=== PATIENT | female | born 1960 | race Caucasian/White ===

== ENCOUNTER 2019-05-04 16:50 | Emergency (ER) | payer OTHER, SELFPAY ==
[2019-05-04 17:29] VITALS: BP 141/85; PULSE 75; RESP 16; TEMP 36.6; O2SAT 97; BMI 29.7
--- NOTE | 2019-05-04 17:31 | DI.RAD.S_ITS ---
PROCEDURE: XR KNEE LT 3V INDICATIONS: fell onto L knee and heard pop TECHNIQUE: 3 views of the knee were acquired. COMPARISON: None. FINDINGS: Bones: No fractures or dislocations. No suspicious bony lesions. Soft tissues: No joint effusion. No suspicious soft tissue calcifications. IMPRESSION: No acute fracture. No osseous lesion. If clinical suspicion and/or symptoms persist, further assessment with repeat plainfilms, or advanced imaging (e.g., CT, MRI, or bone scan) may be helpful for further assessment. Dictated by: Sheila Washburn M.D. on 05/04/2019 at 18:17 Approved by: Sheila Washburn M.D. on 05/04/2019 at 18:17
--- NOTE | 2019-05-04 18:38 | ED.LOWEXIN ---
HPI - Extremity Injury (Lower) <BYRON Moy - Last Filed: 05/04/19 22:51> General Chief Complaint: Extremity Injury, Lower Stated Complaint: fall, left knee popped Time Seen by Provider: 05/04/19 17:34 Source: patient Mode of arrival: Wheelchair Limitations: no limitations History of Present Illness HPI Narrative: This is a pleasant 58 year old female, nonsmoker, who presents with her children to ED with chief complaint of left knee pain. She reports she had a mechanical fall after her shoe got caught on something. She is not able to recall how she injured and whether she twisted the affected knee. However, she felt something pop in posterior knee, patient feels her knee feels unstable with bearing weight. She reports mild numbness to down her lower leg. Patient reports she has been having knee problem with popping forward and shifting freely in the past on the affected site. Patient reports she can move her toes and has sensation on her foot. Related Data Home Medications Medication Instructions Recorded Confirmed albuterol sulfate INHALATION 05/03/19 05/03/19 amoxicillin-pot clavulanate PO 05/03/19 05/03/19 heart med for tachycardia PO 05/03/19 05/03/19 levothyroxine PO 05/03/19 05/03/19 Previous Rx's Medication Instructions Recorded prednisone 20 mg tablet 20 mg PO DAILY 5 Days #5 tab 05/03/19 Allergies Allergy/AdvReac Type Severity Reaction Status Date / Time No Known Drug Allergies Allergy Unverified 05/03/19 14:03 Review of Systems <BYRON Moy - Last Filed: 05/04/19 22:51> Review of Systems ROS Unobtainable: All systems reviewed & are unremarkable except as noted in HPI and below PFSH <BYRON Moy - Last Filed: 05/04/19 22:51> Medical History (Updated 05/04/19 @ 22:31 by BYRON Moy) Hyperthyroidism (Acute) Reactive airway disease (Acute) SVT (supraventricular tachycardia) (Acute) Social History Smoking Status: Never smoker Social History Smoking Status: Never smoker Exam <BYRON Moy - Last Filed: 05/04/19 22:51> Narrative Exam Narrative: General appearance: well developed, well nourished, in no acute distress. Head: normocephalic, atraumatic, no scalp lesions, non-tender. Eye: pupil equal, round. EOMI. Nose: nares patent. Oral: mucosa moist. Neck/Thyroid: neck supple, full range of motion, no visible masses. Skin: no suspicious rashes, lesions over visible areas. Warm and dry. Heart: no clubbing, no cyanosis, no edema. Lungs: Breathing even and unlabored. No stridor. No accessory muscles used. Chest: normal shape and expansion. Abdomen: non-obese, non-distended. Neurologic: alert and oriented. Cognitive exam, [employer]LE [employer] and PNS grossly intact on informal exam. Psych: good eye contact, normal affect. Initial Vital Signs Initial Vital Signs: Vital Signs Temperature 98 F 05/04/19 17:29 Pulse Rate 75 05/04/19 17:29 Respiratory Rate 16 05/04/19 17:29 Blood Pressure 141/85 H 05/04/19 17:29 Pulse Oximetry 97 05/04/19 17:29 Extrem Right lower extremity: normal to inspection and full ROM Left lower extremity: hip/thigh Details: normal to inspection and normal ROM, knee Details: normal to inspection, tenderness (Posterior knee), normal ROM and knee ligament exam normal Details: anterior drawer test normal, posterior drawer test normal, valgus stress test normal and varus stress test normal; no swelling, no deformity and no unusual warmth, ankle Details: normal to inspection and foot Details: toes with normal ROM and vascular exam Details: dorsalis pedis pulse present and normal capillary refill; not cool and no cyanosis <Ophelia Simon DO - Last Filed: 05/05/19 07:58> Initial Vital Signs Initial Vital Signs: Vital Signs Temperature 98 F 05/04/19 17:29 Pulse Rate 75 05/04/19 17:29 Respiratory Rate 16 05/04/19 17:29 Blood Pressure 141/85 H 05/04/19 17:29 Pulse Oximetry 97 05/04/19 17:29 Procedures <BYRON Moy - Last Filed: 05/04/19 22:51> Orthopedic Splinting/Casting Injury #1: Side: left Lower Extremity Injury Location: knee Lower Extremity Immobilizer: knee immobilizer Other Orthopedic Equipment: crutches Post splinting neuro exam: intact Post splinting vascular exam: intact Placed by: Nursing Course <BYRON Moy - Last Filed: 05/04/19 22:51> Orders Ordered: ED Orders 05/04/19 17:31 XR knee LT 3V Stat Vital Signs Vital signs: Vital Signs - 8 hr 05/04/19 17:29 05/04/19 18:55 Temperature 98 F Pulse Rate 75 112 H Respiratory Rate 16 14 Blood Pressure 141/85 H Blood Pressure [Right Arm] 147/94 H Pulse Oximetry 97 96 <Ophelia Simon DO - Last Filed: 05/05/19 07:58> Orders Ordered: ED Orders 05/04/19 17:31 XR knee LT 3V Stat Vital Signs Vital signs: Vital Signs - 8 hr 05/04/19 17:29 05/04/19 18:55 Temperature 98 F Pulse Rate 75 112 H Respiratory Rate 16 14 Blood Pressure 141/85 H Blood Pressure [Right Arm] 147/94 H Pulse Oximetry 97 96 MDM - Extremity Injury (Lower) <BYRON Moy - Last Filed: 05/04/19 22:51> Differential Diagnosis Differential diagnosis: Likely other (Knee fracture, knee dislocation, knee ligament injuries) Medical Records Attestation: I reviewed the patient's medical records. Imaging Data XR-knee LT: Radiologist's impression: [address] [address] XRay Report Signed Patient: Brooke Mace LMR#: [id number] : 2Acct:[id number] Age/Sex: 58 / FDate of Service: 05/04/19 Loc: ED Accession Number: [id number] Procedure: XR knee LT 3V Ordering Provider: Ophelia Simon D.O. PROCEDURE: XR KNEE LT 3V INDICATIONS: fell onto L knee and heard pop TECHNIQUE: 3 views of the knee were acquired. COMPARISON: None. FINDINGS: Bones: No fractures or dislocations. No suspicious bony lesions. Soft tissues: No joint effusion. No suspicious soft tissue calcifications. IMPRESSION: No acute fracture. No osseous lesion. If clinical suspicion and/or symptoms persist, further assessment with repeat plainfilms, or advanced imaging (e.g., CT, MRI, or bone scan) may be helpful for further assessment. Dictated by: Sheila Washburn M.D. on 05/04/2019 at 18:17 Approved by: Sheila Washburn M.D. on 05/04/2019 at 18:17 [facility] Narrative Medical decision making narrative: This is a 58-year-old female who presents to ED with her children with mild left knee posterior discomfort and feeling of instability when she bears weight after she sustained a mechanical fall. There is no deformity, effusion, or crepitus noted. Patient does report mild numbness below to left knee. Pedal pulse was intact with light touch sensation. Patient reports chronic left knee problems in the past and had been evaluated with orthopedist in remote history. X-ray tests does not show any acute findings today. Applied knee immobilization and provided set of crutches and crutch use teaching has been done. Patient advised to use [id number] Tylenol and or Motrin as needed for discomfort and RICE therapy. Patient advised to follow up with the primary care physician next week and possible referral to orthopedist, further imaging test, to physical therapist was suggested if she has persistent pain. Patient advise with the treatment plan and no further questions were expressed at this time. Discharge Plan Departure Patient Disposition: Home Clinical Impression: Knee pain Qualifiers: Chronicity: unspecified Laterality: left Qualified Code(s): M25.562 - Pain in left knee Injury of knee, ligament Qualifiers: Encounter type: initial encounter Laterality: left Qualified Code(s): S89.92XA - Unspecified injury of left lower leg, initial encounter Discharge Date/Time: 05/04/19 19:13 Instructions: DI for Knee Pain Activity Restrictions/Additional Instructions: You have been diagnosed with [knee pain and on stability. According to x-ray test, there is no acute findings such as fracture, dislocation, effusion.]. What to do: *Take your medications as directed. You can take [id number] Tylenol and or Motrin as needed for discomfort. Please use knee immobilizers for support. Rest her knee, use ice, elevate her leg as needed for discomfort or possible swelling. *Follow up with your primary care provider in 2-3 days, call for an appointment. Let them know you were seen in the ED and that we asked you to be seen in follow up. You may need a referral to physical therapist, or orthopedist for re-evaluation or further imaging test if knee pain persists. *Return to ED if you have any new, worsening, or concerning symptoms, such as [worsening numbness, severe pain and swelling, tingling, weakness to left leg, chest pain, breathing difficulty, or any acute concerns]. Prescriptions: No Action levothyroxine PO RF: 0 albuterol sulfate inhalation RF: 0 amoxicillin-pot clavulanate PO RF: 0 heart med for tachycardia PO RF: 0 prednisone 20 mg tablet 20 mg PO DAILY 5 Days Qty: 5 RF: 0 Referrals: [facility] [Outside]
[2019-05-04 18:55] VITALS: BP 147/94; PULSE 112; RESP 14; O2SAT 96
== END 2019-05-04 19:13 | disposition home or self-care (01) ==
PROVIDERS: Emergency Provider Nurse Practitioner Family
DX: S89.92XA Unspecified injury of left lower leg, initial encounter (principal); W01.0XXA Fall on same level from slipping, tripping and stumbling without subsequent striking against object, initial encounter
CPT/HCPCS: 73562; 99283

== ENCOUNTER → 2022-03-25 14:13 | Outpatient (CLI) | payer OTHER, SELFPAY ==
--- NOTE | 2022-03-25 14:15 | DI.RAD.S_ITS ---
PROCEDURE: XR CERVICAL SPINE 2V OR 3V INDICATIONS: Neck Pain TECHNIQUE: 3 view(s) of the cervical spine were acquired. COMPARISON: None. FINDINGS: Bones: No fractures or dislocations to the T1 level. The lateral masses of C1 appear intact on the odontoid view. No suspicious bony lesions. Disc space narrowing and anterior osteophytes noted in the lower cervical spine Soft tissues: No prevertebral soft tissue swelling. IMPRESSION: Degenerative changes without fracture or traumatic malalignment Approved by: Rodrigo Crockett M.D. on 03/25/2022 at 17:39
== END ==
PROVIDERS: PCP Family Medicine; Referring Provider Physician Assistant; Visit Provider Physician Assistant
DX: M54.2 Cervicalgia (principal); M47.812 Spondylosis without myelopathy or radiculopathy, cervical region
CPT/HCPCS: 72040

== ENCOUNTER 2022-04-01 13:08 | Emergency (ER) | payer OTHER, SELFPAY ==
[2022-04-01 13:15] VITALS: BP 149/80; PULSE 103; RESP 20; TEMP 36.1; O2SAT 94; BMI 30.7
--- NOTE | 2022-04-01 18:56 | ED_ITS ---
HPI - Back Pain/Injury <Malcolm Gonzalez PA-C - Last Filed: 04/01/22 19:14> General Chief Complaint: Back Pain/Injury Stated Complaint: severe back pain, seen in [facility] last week Time Seen by Provider: 04/01/22 15:03 Source: patient History of Present Illness HPI Narrative: Patient is a 61-year-old female who presents to the emergency room today with complaint of continued neck and upper back pain for over 2 weeks. The pain is on the right side and radiates down her right axilla and right arm. Was seen last Sunday at the walk-in clinic was prescribed muscle relaxers and ibuprofen. He has some muscle relaxers help her sleep but does not help with the back pain. Also describes back pain as a throbbing shocking sensation. She states feels like neuro muscular type issue. Denies any trauma to the back. Has not been able to schedule an appointment with her primary care provider to be seen for this issue. Main concern today is pain. Denies any trauma to the back and denies any bowel bladder dysfunction. Related Data Home Medications Medication Instructions Recorded Confirmed albuterol sulfate inhalation 05/03/19 05/03/19 amoxicillin-pot clavulanate PO 05/03/19 05/03/19 [Augmentin] heart med for tachycardia PO 05/03/19 05/03/19 levothyroxine [Synthroid] PO 05/03/19 05/03/19 Previous Rx's Medication Instructions Recorded cyclobenzaprine 10 mg tablet 10 mg PO Q8H #30 tabs 03/25/22 ibuprofen 800 mg tablet 800 mg PO Q8H #30 tabs 03/25/22 prednisolone 5 mg tablet 5 mg PO DAILY #25 tabs 04/01/22 Allergies Allergy/AdvReac Type Severity Reaction Status Date / Time No Known Drug Allergies Allergy Unverified 03/25/22 13:49 Review of Systems <Malcolm Gonzalez PA-C - Last Filed: 04/01/22 19:14> Review of Systems Narrative: R.O.S.: General: No fever, chills or fatigue. Cardiovascular: No chest pain or palpitations Respiratory: No S.O.B. HEENT: No congestion, ear pain, rhinorrhea, sore throat or tinnitus Gastrointestinal: No nausea or vomiting Skin: No rash or associated abnormalities Neurological: Awake, alert and in not apparent distress. No Headaches, changes in vision or other related neurological concerns. Musculoskeletal: Neck and upper back pain and neuropathy Patient History <Malcolm Gonzalez PA-C - Last Filed: 04/01/22 19:14> Medical History Hyperthyroidism Neck pain Reactive airway disease SVT (supraventricular tachycardia) Social History Smoking Status: Never smoker Smoking Status: Never smoker alcohol intake frequency: holidays/special occasions only Substance Use Type: does not use Exam <Malcolm Gonzalez PA-C - Last Filed: 04/01/22 19:14> Narrative Exam Narrative: Physical Exam: ? General: normal appearance, well developed, well nourished, alert, and awake. Not in acute distress. ? Head: Normocephalic, no lesions. Chest: Lungs CTAB, no rales, rhonchi or wheezes. ?? Heart: RRR, no murmurs, rubs or gallops. Eyes: PERRLA, EOM's full, conjunctivae clear. ? Neuro: Physiological, no localizing findings, CN3-12 intact. ?? Extremities: Warm, well perfused, FROM, no deformities, no edema. ?? Skin: Normal, no rashes, no lesions noted. ?? PSYCHIATRIC: The mood is good, no blunted affect. Speech is clear. Thought process is linear, thought content is appropriate. The voice is without significant inflection. Gastrointestinal: Soft; NT; ND; Pos BS with Neg. rebound tenderness. No scars or major deformities noted on Visual Inspection. Musculoskeletal: Patient is negative paraspinal tenderness in the cervical thoracic and lumbar spines. Patient does have pain to palpation below the right scapula. Patient has good tandem walk intact heel walk and intact tiptoe walk. Patient also has negative straight leg raises bilaterally Initial Vital Signs Initial Vital Signs: Vital Signs Temperature 96.9 F L 04/01/22 13:15 Pulse Rate 103 H 04/01/22 13:15 Respiratory Rate 20 04/01/22 13:15 Blood Pressure 149/80 H 04/01/22 13:15 Pulse Oximetry 94 04/01/22 13:15 Oxygen Delivery Method 04/01/22 13:15 <Krista Guajardo DO - Last Filed: 04/08/22 08:08> Initial Vital Signs Initial Vital Signs: Vital Signs Temperature 96.9 F L 04/01/22 13:15 Pulse Rate 103 H 04/01/22 13:15 Respiratory Rate 20 04/01/22 13:15 Blood Pressure 149/80 H 04/01/22 13:15 Pulse Oximetry 94 04/01/22 13:15 Oxygen Delivery Method 04/01/22 13:15 Course <Malcolm Gonzalez PA-C - Last Filed: 04/01/22 19:14> Vital Signs Vital signs: Vital Signs - 8 hr 04/01/22 13:15 Temperature 96.9 F L Pulse Rate 103 H Respiratory Rate 20 Blood Pressure 149/80 H Pulse Oximetry 94 Oxygen Delivery Method Room Air <Krista Guajardo DO - Last Filed: 04/08/22 08:08> Vital Signs Vital signs: Vital Signs - 8 hr 04/01/22 13:15 Temperature 96.9 F L Pulse Rate 103 H Respiratory Rate 20 Blood Pressure 149/80 H Pulse Oximetry 94 Oxygen Delivery Method Room Air MDM - Back Pain/Injury <Malcolm Gonzalez PA-C - Last Filed: 04/01/22 19:14> MDM Narrative Medical decision making narrative: Patient is 61-year-old female who presents to the emergency room today with complaint continued neck and upper back pain for over 2 weeks. Was seen in walk-in clinic last week and has been taking muscle relaxers and ibuprofen to help minimally and with the pain. Has not been able to see her primary care provider he would like something for pain. Physical exam revealed pain to palpation on the right scapula and patient complained arm neuropathic pain down her right arm in the axillary area. Prednisone was ordered to help with inflammation 5 days. Patient also advised to contact her primary care provider and follow-up with ortho. Contact information for Ortho was also provided in the discharge packet and patient advised to contact them. Patient also advised to return to emergency room if any emergent concerns arise. Patient agrees with plan Discharge Plan Departure Patient Disposition: Home Clinical Impression: Neuropathy, Neck pain, Thoracic back pain Instructions: Peripheral Neuropathy, DI for Back Pain With Sciatica, DI for Ne ck Pain Activity Restrictions/Additional Instructions: *You have been diagnosed with [cervical thoracic back pain with radiculopathy. I have ordered prednisone to help with possible inflammation that is causing muscle impingement on the nerves. Also suggest to continue to muscle relaxers if they help with pain. And also suggest she try ibuprofen or Tylenol to also help with the pain.] Also suggested follow-up with your primary care provider to be referred to physical therapist or Ortho. I have sent Dr. Monroy your discharge summary. You can also reach his office at [phone] or at [phone]. Please return to the emergency room should any emergent concerns arise. Please report to her primary care provider for any nonemergent concerns. *What to do: *Please continue to take your regular medications as directed. [x] New medication prescriptions sent to your pharmacy: [ ] [ ] New medication written as a paper prescription [ ] No new medications given *Please follow up with your primary care provider in 2-3 days, call for an appointment. Let them know you were seen in the Emergency Department and that we ask that you be seen in follow up. We will electronically transmit a record of today's note if your PCP is in our system *If you do not have a primary care provider please contact the [facility] Resource line at [phone]. They will ask some questions about your medical history and help get you set up with a doctor in the community. *Return to Emergency Department if you should have any new, worsening or con cerning symptoms, such as [fever greater than 101 F, shaking chills, worsening pain, persistent vomiting or other bothersome symptoms] Prescriptions: New prednisolone 5 mg tablet 5 mg PO DAILY Qty: 25 0RF No Action levothyroxine PO albuterol sulfate inhalation amoxicillin-pot clavulanate PO heart med for tachycardia PO ibuprofen 800 mg tablet 800 mg PO Q8H Qty: 30 0RF cyclobenzaprine 10 mg tablet 10 mg PO Q8H Qty: 30 0RF Referrals: Xuan Cunningham MD [Primary Care Provider] - Iraj Monroy MD [Physician] - Visit Report Forms: Patient Portal/API <Krista Guajardo DO - Last Filed: 04/08/22 08:08> Cosign ED Attending Lyudmilaature Attestation: I was immediately available in the department for consultation. Documentation has been reviewed.
== END 2022-04-01 19:14 | disposition home or self-care (01) ==
PROVIDERS: Emergency Provider Physician Assistant; PCP Family Medicine
DX: M54.2 Cervicalgia (principal); M54.6 Pain in thoracic spine; G62.9 Polyneuropathy, unspecified
CPT/HCPCS: 99281

== ENCOUNTER 2024-05-14 21:58 | Observation (INO) | payer OTHER, SELFPAY ==
[2024-05-14 22:01] VITALS: BP 135/68; PULSE 90; RESP 18; TEMP 36.4; O2SAT 98; BMI 25.8
--- NOTE | 2024-05-14 22:27 | ED.LOWEXIN ---
HPI - Extremity Injury (Lower) General Chief Complaint: Weakness Stated Complaint: left leg dragging, no strength Time Seen by Provider: 05/14/24 22:04 Source: patient Mode of arrival: Ambulatory Limitations: no limitations History of Present Illness HPI Narrative: 63-year-old female with a history of SVT diltiazem, dyslipidemia, hypothyroidism who presents with complaint of left leg weakness and decreased sensation. States she noticed a little bit issue in the past month she had a fall in mid April. She states no so little bit of sensation change at that time. Today while at [employer] she noticed a significant change and said she was dragging her foot. States she could not really dorsiflex the foot. She states it has not improved somewhat but still feels weaker. She states her leg feels a little bit different than the right 1. She denies any involvement of her upper extremity no facial droop or weakness. No current headaches, noticed some vision changes with flashing spots 5 days ago. No chest pain or shortness of breath, no nausea or vomiting no other GI or urinary symptoms. No back pain, no flank pain no leg pain. Patient states her physician did recently adjust her levothyroxine to a lower dose. She does not take any anticoagulants. No tobacco occasional alcohol, no recreational drugs. Sees MANAGEMENT TRAINER Button as her primary care physician. Related Data Home Medications Medication Instructions Recorded Confirmed albuterol sulfate inhalation 05/03/19 05/03/19 amoxicillin-pot clavulanate PO 05/03/19 05/03/19 [Augmentin] heart med for tachycardia PO 05/03/19 05/03/19 levothyroxine [Synthroid] PO 05/03/19 05/03/19 Previous Rx's Medication Instructions Recorded cyclobenzaprine 10 mg tablet 10 mg PO Q8H #30 tabs 03/25/22 ibuprofen 800 mg tablet 800 mg PO Q8H #30 tabs 03/25/22 prednisolone 5 mg tablet 5 mg PO DAILY #25 tabs 04/01/22 Allergies Allergy/AdvReac Type Severity Reaction Status Date / Time No Known Drug Allergies Allergy Unverified 03/25/22 13:49 Review of Systems Review of Systems ROS Unobtainable: All systems reviewed & are unremarkable except as noted in HPI and below Patient History Medical History Neck pain SVT (supraventricular tachycardia) Hyperthyroidism Reactive airway disease Social History Smoking Status: Never smoker Smoking Status: Never smoker alcohol intake frequency: holidays/special occasions only Substance Use Type: does not use Exam Narrative Exam Narrative: GEN: well nourished, well appearing male, alert and oriented x 3, patient appears to be in my distress. HEENT: Atraumatic, pupils are equal round reactive to light, extraocular movements are intact, nares are clear, throat is clear without any exudates, erythema, tonsillar enlargement or uvular deviation, no facial droop. HEART: Regular rate and rhythm without murmur, clicks, rubs. No carotid bruits, pulses are equal in upper and lower extremities LUNGS:Lungs clear to auscultation, no wheezes, rales, crackles, chest moves symmetrically ABD:bowel sounds normal, soft, non-tender, no guarding, rebound, rigidity, no masses noted, no hepatosplenomegaly MSCL: Non-tender, no muscle atrophy, patient has a very mild drift with the left lower extremity, full range of motion, normal gait NEURO:CN 2-12 intact, sensation normal, reflexes 2/4 upper and lower extremities. finger nose finger test normal, heel nieves test normal, patient does have some weakness with dorsiflexion left in comparison to right. No weakness with plantar flexion Initial Vital Signs Initial Vital Signs: Vital Signs Temperature 97.6 F 05/14/24 22:01 Pulse Rate 90 05/14/24 22:01 Respiratory Rate 18 05/14/24 22:01 Blood Pressure 135/68 05/14/24 22:01 Pulse Oximetry 98 05/14/24 22:01 Oxygen Delivery Method Room Air 05/14/24 22:01 Scores CHADS-VASc Congestive heart failure: no Hypertension: no Age 75 years or older: no Diabetes mellitus: no Stroke, TIA, or TE: no Vascular disease: no Age 65 to 74 years: no Sex category (female): Female CHADS-VASc Score: 1 NIH Stroke Scale Level of Conciousness: Alert, keenly responsive Ask month/age: Answers both questions correctly. Open/close eyes, close hand: Performs both tasks correctly Best gaze horizontal: Normal Visual crespo: No visual loss Facial palsy: Normal symetrical movement Left arm drift: No drift for full 10 sec Right arm drift: No drift for full 10 sec Left leg drift: Drifts down, not to bed Right leg drift: No drift for full 5 sec Limb ataxia: Absent Sensory on face/arms/legs: Normal, no sensory loss Best language: No aphasia, normal Dysarthria: Normal Extinction or inattention: No abnormality Total NIH Stroke scale score: 1 Course Orders Ordered: ED Orders 05/14/24 22:36 CT angio head and neck Stat CT head/brain wo con Stat Urine Drug Screen, Rapid Stat EKG-12 Lead Stat 05/14/24 22:43 Complete Blood Count AUTO DIFF Stat Comprehensive Metabolic Panel Stat Free T4, Direct Thyroxine Stat PTT Partial Thromboplastin Rinku Stat Prothrombin Time INR Stat TSH w/ Reflex to FT4 Stat 05/15/24 EC echo doppler complete Stat MR head/brain wo con Stat Basic Metabolic Panel Routine Complete Blood Count AUTO DIFF Routine 05/15/24 01:23 Education, smoking cessation ONGOING 05/15/24 01:28 Consult to Occupational Therapy Evaluate & Treat Consult to Physical Therapy Evaluate & Treat Acetaminophen (Acetaminophen 325 Mg Tablet) 650 mg PO Q6H PRN PRN Reason: Fever/Mild Pain (1-3) Enoxaparin Sodium (Enoxaparin 40 Mg/0.4 Ml Syringe) 40 mg SUBCUT DAILY [facility] Lactated Ringer's (Lactated Ringers) 1,000 mls @ 100 mls/hr IV CONT JORJE Last Admin: 05/15/24 01:39 Dose: 100 mls/hr Naloxone HCl (Naloxone 0.4 Mg/Ml Vial) 0.2 mg IV Q2MIN PRN PRN Reason: Opiate Reversal Ondansetron HCl (Ondansetron 4 Mg/2 Ml Inj) 4 mg IV Q8HR PRN PRN Reason: Nausea And Vomiting Discontinued Medications Aspirin (Aspirin 81 Mg Chew Tab) 324 mg PO NOW ONE Stop: 05/15/24 01:15 Last Admin: 05/15/24 01:24 Dose: 324 mg Vital Signs Vital signs: Vital Signs - 8 hr 05/14/24 22:01 05/14/24 23:02 05/14/24 23:02 Temperature 97.6 F Pulse Rate 90 90 Respiratory Rate 18 Blood Pressure 135/68 136/76 Pulse Oximetry 98 96 Oxygen Delivery Method Room Air Room Air 05/14/24 23:30 05/14/24 23:30 05/15/24 00:00 Temperature Pulse Rate 90 81 Respiratory Rate 22 17 Blood Pressure 119/79 Pulse Oximetry 93 93 Oxygen Delivery Method Room Air 05/15/24 00:00 05/15/24 00:30 05/15/24 00:30 Temperature Pulse Rate 85 Respiratory Rate 19 Blood Pressure 124/68 132/78 Pulse Oximetry 92 Oxygen Delivery Method 05/15/24 01:00 Temperature Pulse Rate 88 Respiratory Rate 18 Blood Pressure Pulse Oximetry 92 Oxygen Delivery Method Room Air MDM - Extremity Injury (Lower) Lab Data 05/14/24 22:43 05/14/24 22:43 Labs: Lab Results 05/14/24 Range/Units 22:43 WBC 7.6 (4.5-11.0) X10^3/uL RBC 4.38 (4.0-5.2) X10^6/uL Hgb 13.3 (12.0-16.0) g/dL Hct 39.0 (36-46) % MCV 89.1 (80-100) fL MCH 30.3 (26-34) PG MCHC 34.0 (30-36) % RDW 12.8 (11.6-14.8) % Plt Count 209 (150-400) X10^3/uL Neut % (Auto) 55.5 (50-75) % Lymph % (Auto) 36.1 (25-40) % Bertie % (Auto) 5.8 (3-14) % Eos % (Auto) 2.2 (2-4) % Baso % (Auto) 0.4 (0-2) % Neut # (Auto) 4200 (7674-9535) /uL Lymph # (Auto) 2800 (0751-5999) /uL Bertie # (Auto) 400 (0-900) /uL Eos # (Auto) 200 (0-450) /uL Baso # (Auto) 0 (0-100) /uL PT 11.6 (9.4-12.5) SECONDS INR 1.0 (0.9-1.3) APTT 30 (25.1-36.5) SECONDS Sodium 140 (137-145) mmol/L Potassium 3.6 (3.4-5.1) mmol/L Chloride 108 H (98-107) mmol/L Carbon Dioxide 24 (22-32) mmol/L BUN 19 H (7-17) mg/dL Creatinine 0.92 (0.52-1.04) mg/dL Estimated GFR > 60 (>60) mL/min BUN/Creatinine Ratio 20.7 (6-22) Glucose 152 H (80-110) mg/dL Calcium 9.2 (8.4-10.2) mg/dL Total Bilirubin 0.5 (0.2-1.3) mg/dL AST 30 (14-36) IU/L ALT 31 (<35) IU/L Alkaline Phosphatase 55 (38-126) U/L Total Protein 6.7 (6.3-8.2) g/dL Albumin 4.0 (3.5-5.0) g/dL Globulin 2.7 (1.7-4.1) g/dL Albumin/Globulin Ratio 1.5 (1.0-2.8) TSH 0.14 L (0.47-4.68) uIU/mL Free T4 1.50 (0.78-2.19) ng/dL Imaging Data CT scan - head: Radiologist's Impression: Diagnostics Reports Brooke Mace??63??F??1960 ? Allergy/Adv: No Known Drug Allergies (More??) Close Head/Neck CTA (Signed) Sharp,Eitan - 05/14/[address] (Signed) SharpEitan - 05/14/24 Cervical Spine X-Ray (Signed) Rodrigo Crcokett - 03/25/22 Knee X-Ray (Signed) Sheila Washburn - 05/04/19 [place] [address] CT Scan Report Signed Patient: Brooke Mace MR#: [id number] : 1960 Acct:[id number] Age/Sex: 63 / F Date of Service: 05/14/24 Loc: ED Accession Number: [id number] Procedure: CT head/brain wo con Ordering Provider: Krista Guajardo D.O. PROCEDURE: CT HEAD/BRAIN WO CON INDICATIONS: left leg weakness, decreased sensation TECHNIQUE: Noncontrast 4.5 mm thick angled axial sections acquired from the foramen magnum to the vertex, with coronal and sagittal reformats. For radiation dose reduction, the following was used: automated exposure control, adjustment of mA and/or kV according to patient size. COMPARISON: None. FINDINGS: Image quality: Diagnostic. CSF spaces: Basal cisterns are patent. No extra-axial fluid collections. Ventricles are normal in size and shape. Brain: No midline shift. No intracranial masses or hemorrhage. Villela-white matter interface is normal. Skull and face: Calvarium and visualized facial bones are intact, without suspicious lesions. Sinuses: Visualized sinuses and mastoids are clear. IMPRESSION: No acute intracranial pathology. Dictated by: Eitan Sharp M.D. on 05/14/2024 at 23:03 Approved by: Eitan Sharp M.D. on 05/14/2024 at 23:04 CTA - brain/neck: Radiologist's Impression: Brooke Mace??63??F??1960 ? Allergy/Adv: No Known Drug Allergies (More??) Close Head/Neck CTA (Signed) Eitan Sharp - 05/14/[address] (Signed) Eitan Sharp - 05/14/24 Cervical Spine X-Ray (Signed) Rodrigo Crockett - 03/25/22 Knee X-Ray (Signed) Sheila Washburn - 05/04/19 [place] [address] CT Scan Report Signed Patient: Brooke Mace MR#: [id number] : 1960 Acct:[id number] Age/Sex: 63 / F Date of Service: 05/14/24 Loc: ED Accession Number: [id number] Procedure: CT angio head and neck Ordering Provider: Krista Guajardo D.O. PROCEDURE: CT ANGIO HEAD AND NECK INDICATIONS: left leg weakness, decreased sensation TECHNIQUE: After the administration of intravenous contrast, 1 mm thick sections acquired from the aortic arch through the [place]. 3-dimensional uzspumv-cmievbhxw-eksubkbprl (MIP) and/or volume rendering reformats were acquired of the central intracranial vasculature and neck separately. For radiation dose reduction, the following was used: automated exposure control, adjustment of mA and/or kV according to patient size. COMPARISON: None. FINDINGS: Image quality: Diagnostic. BRAIN: Please refer to same day CT of the head. HEAD CT ANGIOGRAPHY: Anterior circulation: Intracranial internal carotid arteries are normal in size and flow. The flow within the paired anterior cerebral arteries is normal and symmetric. The flow within the middle cerebral arteries is normal and symmetric. The anterior communicating artery is seen. No aneurysms are seen. Posterior circulation: Visualized portions of the vertebral arteries demonstrate normal caliber, and join to form a normal appearing basilar artery. origin of the right DIAMOND DIE MAKER. Flow within the posterior cerebral arteries is normal and symmetric. No aneurysms are seen. NECK CT ANGIOGRAPHY: Carotid system: The great vessels demonstrate a conventional anatomy as they arise from the aortic arch. The origins of the common carotid arteries appear patent. The common carotid arteries demonstrate normal caliber and courses. The bifurcation regions are both widely patent. The internal carotid arteries demonstrate normal calibers and courses. Posterior circulation: The origins of the vertebral arteries both appear widely patent. The more superior extracranial portions of both vertebral arteries also demonstrate normal courses and calibers. They join to form a normal appearing basilar artery. Soft tissues: Visualized neck soft tissues demonstrate no suspicious abnormalities. Bones: No suspicious bony lesions. Visualized cervical spine appears normally aligned. Degenerative changes of the spine. IMPRESSION: No significant intracranial arterial abnormality is seen. No significant abnormality is seen within the arteries of the neck. Any quantitative measurements of stenosis were performed using NASCET criteria. Dictated by: Eitan Sharp M.D. on 05/14/2024 at 23:18 Approved by: Eitan Sharp M.D. on 05/14/2024 at 23:22 ECG Data Attestation: I personally reviewed and interpreted this ECG as follows: Interpretation: Sinus rhythm rate 88 WV 164 QRS is 72 QTC 447, no acute ST elevation or depression. [facility] Narrative Medical decision making narrative: 63-year-old female history of hypertension, SVT and hypothyroidism who presents with left lower extremity weakness and sensation change without any pain in the back, hip or leg. Noticed significant sudden change about 5pm this evening has had some improvement but not complete resolution. Patient was able to ambulate into the department. States she was dragging her foot earlier this evening. She was outside the window for any tPA intervention. NIH is 1 exam does show some weakness with dorsiflexion of the foot as well as some very mild drift. Labs normal white count and has been 0.6 hemoglobin of 13.3 platelets of 209. INR is 1. Sodium is 140 potassium 3.6 chloride 108 CO2 is 24 19 with a creatinine of 0.92 glucose is 152 LFTs negative, TSH is low, T4 is appropriate. EKG normal sinus rhythm Head CT shows no acute CT head and neck angio no acute change in the vessels of the head or neck. Discussed findings with patient, she has had some findings in the past. But had significant change today much worsened which has improved but not totally resolve. Discussed with patient about observation for CVA/TIA workup. Patient given aspirin 324 mg Spoke with the hospitalist, Dr. Vega, accepts for observation with telemetry stroke/TIA workup. Discharge Plan Departure Patient Disposition: Admitted as Observation Clinical Impression: Weakness of left lower extremity Admit Date/Time: 05/15/24 01:28 Admit Provider: Lior Vega
--- NOTE | 2024-05-14 22:36 | DI.CT.S_ITS ---
PROCEDURE: CT ANGIO HEAD AND NECK INDICATIONS: left leg weakness, decreased sensation TECHNIQUE: After the administration of intravenous contrast, 1 mm thick sections acquired from the aortic arch through the [place]. 3-dimensional tvawiug-twmhgbgxi-qezctysrbo (MIP) and/or volume rendering reformats were acquired of the central intracranial vasculature and neck separately. For radiation dose reduction, the following was used: automated exposure control, adjustment of mA and/or kV according to patient size. COMPARISON: None. FINDINGS: Image quality: Diagnostic. BRAIN: Please refer to same day CT of the head. HEAD CT ANGIOGRAPHY: Anterior circulation: Intracranial internal carotid arteries are normal in size and flow. The flow within the paired anterior cerebral arteries is normal and symmetric. The flow within the middle cerebral arteries is normal and symmetric. The anterior communicating artery is seen. No aneurysms are seen. Posterior circulation: Visualized portions of the vertebral arteries demonstrate normal caliber, and join to form a normal appearing basilar artery. origin of the right DIRECTOR INDEPENDENT. Flow within the posterior cerebral arteries is normal and symmetric. No aneurysms are seen. NECK CT ANGIOGRAPHY: Carotid system: The great vessels demonstrate a conventional anatomy as they arise from the aortic arch. The origins of the common carotid arteries appear patent. The common carotid arteries demonstrate normal caliber and courses. The bifurcation regions are both widely patent. The internal carotid arteries demonstrate normal calibers and courses. Posterior circulation: The origins of the vertebral arteries both appear widely patent. The more superior extracranial portions of both vertebral arteries also demonstrate normal courses and calibers. They join to form a normal appearing basilar artery. Soft tissues: Visualized neck soft tissues demonstrate no suspicious abnormalities. Bones: No suspicious bony lesions. Visualized cervical spine appears normally aligned. Degenerative changes of the spine. IMPRESSION: No significant intracranial arterial abnormality is seen. No significant abnormality is seen within the arteries of the neck. Any quantitative measurements of stenosis were performed using NASCET criteria. Dictated by: Eitan Sharp M.D. on 05/14/2024 at 23:18 Approved by: Eitan Sharp M.D. on 05/14/2024 at 23:22
--- NOTE | 2024-05-14 22:36 | DI.CT.S_ITS ---
PROCEDURE: CT HEAD/BRAIN WO CON INDICATIONS: left leg weakness, decreased sensation TECHNIQUE: Noncontrast 4.5 mm thick angled axial sections acquired from the foramen magnum to the vertex, with coronal and sagittal reformats. For radiation dose reduction, the following was used: automated exposure control, adjustment of mA and/or kV according to patient size. COMPARISON: None. FINDINGS: Image quality: Diagnostic. CSF spaces: Basal cisterns are patent. No extra-axial fluid collections. Ventricles are normal in size and shape. Brain: No midline shift. No intracranial masses or hemorrhage. Villela-white matter interface is normal. Skull and face: Calvarium and visualized facial bones are intact, without suspicious lesions. Sinuses: Visualized sinuses and mastoids are clear. IMPRESSION: No acute intracranial pathology. Dictated by: Eitan Sharp M.D. on 05/14/2024 at 23:03 Approved by: Eitan Sharp M.D. on 05/14/2024 at 23:04
--- NOTE | 2024-05-14 22:49 | PC.NURSE ---
Pt states that the only issue she has had has been her left leg is difficult to fruit or nut picker intermittently while walking.
--- NOTE | 2024-05-14 23:00 | EKG_ITS ---
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
[2024-05-14 23:02] VITALS: BP 136/76; PULSE 90; O2SAT 96
[2024-05-14 23:07] LABS: Prothrombin Time 11.6 SECONDS (9.4-12.5)
[2024-05-14 23:10] LABS: PTT Partial Thromboplastin Tim 30 SECONDS (25.1-36.5)
[2024-05-14 23:11] LABS: Add Manual Diff / Slide Review NO; Basophils Absolute Auto 0 /uL (0-100); Basophils Percent Auto 0.4 % (0-2); Eosinophils Absolute Auto 200 /uL (0-450); Eosinophils Percent Auto 2.2 % (2-4); Hemoglobin 13.3 g/dL (12.0-16.0); Lymphocytes Absolute Auto 2800 /uL (1100-4500); Lymphocytes Percent Auto 36.1 % (25-40); Mean Corpuscular Hemoglobin 30.3 PG (26-34); Mean Corpuscular Volume 89.1 fL (80-100); Monocytes Absolute Auto 400 /uL (0-900); Monocytes Percent Auto 5.8 % (3-14); Neutrophils Absolute Auto 4200 /uL (1500-7000); Neutrophils Percent Auto 55.5 % (50-75); Platelet Count 209 X10^3/uL (150-400); Red Blood Cell Count 4.38 X10^6/uL (4.0-5.2); Red Cell Distribution Width 12.8 % (11.6-14.8); White Blood Cell Count 7.6 X10^3/uL (4.5-11.0)
[2024-05-14 23:14] LABS: Alanine Aminotransferase 31 IU/L (<35); Albumin Globulin Ratio 1.5 (1.0-2.8); Alkaline Phosphatase 55 U/L (38-126); Aspartate Aminotransferase 30 IU/L (14-36); BUN Creatinine Ratio 20.7 (6-22); Bilirubin Total 0.5 mg/dL (0.2-1.3); Blood Urea Nitrogen 19 mg/dL (7-17); Calcium 9.2 mg/dL (8.4-10.2); Carbon Dioxide 24 mmol/L (22-32); Chloride 108 mmol/L (98-107); Estimated Glomerular Filt Rate > 60 mL/min (>60); Globulin 2.7 g/dL (1.7-4.1); Glucose 152 mg/dL (80-110); HEMOLYSIS 20 (0-50); Potassium 3.6 mmol/L (3.4-5.1); Sodium 140 mmol/L (137-145); Total Protein 6.7 g/dL (6.3-8.2)
[2024-05-14 23:30] VITALS: BP 119/79; PULSE 90; RESP 22; O2SAT 93
[2024-05-15] VITALS (12 sets, daily range): BP systolic 117–150; BP diastolic 68–90; PULSE 76–94; RESP 16–26; TEMP 36.1–36.6; O2SAT 92–99; BMI 26.3
--- NOTE | 2024-05-15 | DI.ECHO.S_ITS ---
[facility] : : [address] : : [place] : : [id number] : : Phone: [phone] Echocardiogram Report + + :Name: MARLEEN ATKINS Study Date: 05/15/2024 Height: 66 in : :[facility] ReadingLocation: Weight: 160 lb : : Gender: Female BSA: 1.8 m2 : :: 1960 Age: 63 yrs BP: 132/90 mmHg: :Reason For Study: TIA : :Ordering Physician: FOX, : :NORTH ARREGUIN Performed By: Pia Rogers : :Referring: NORTH BRAXTON MD : + + Interpretation Summary 1. The left ventricular contractility is normal. Estimate ejection fraction is greater than 55% with no segmental wall motion abnormalities. No left ventricular hypertrophy. Grade 1 diastolic dysfunction. 2. The right ventricular contractility is normal. 3. All cardiac chambers are of normal size. 4. No significant valvular abnormalities. 5. No intracardiac shunts noted on agitated saline contrast study. 6. No obvious intracardiac masses nor thrombi. 7. No hemodynamically significant pericardial effusion. 8. Low right-sided filling pressures. Conclusion: Normal biventricular systolic function with no significant valvular nor structural abnormalities. Procedure: A two-dimensional transthoracic echocardiogram with color flow and Doppler was performed. The study quality was technically adequate. There is no prior echocardiogram noted for this patient. The patient was in sinus rhythm with heart rates between 70-83 bpm during the exam. Left Ventricle: The left ventricle is normal in size and wall thickness. The ejection fraction is estimated to be 55-60%. Right Ventricle: The right ventricle is normal in size and function. Atria: The left atrial size is normal. Right atrial size is normal. Injection of contrast documented no interatrial shunt. Mitral Valve: The mitral valve is normal in structure and function. There is trace mitral regurgitation. Aortic Valve: The aortic valve is trileaflet. The aortic valve opens well. There is no aortic valve stenosis. No aortic regurgitation is present. Tricuspid Valve: The tricuspid valve is normal in structure and function. There is trace tricuspid regurgitation. The right ventricular systolic pressure is estimated to be at least 23 mmHg based on an estimated right atrial pressure of 3 mm Hg. Pulmonic Valve: The pulmonic valve leaflets are thin and pliable; valve motion is normal. There is trace pulmonic regurgitation. Great Vessels: The aortic root is normal size. The dimensions of the ascending aorta are normal. The IVC is of normal diameter and collapses greater than 50% with a sniff. This suggests a low right atrial pressure of 3 mm Hg. Pericardium/ Pleura There is no pericardial effusion. There is no pleural effusion. MMode/2D Measurements & Calculations LVIDd: 4.4 cm LVOT diam: 2.0 cm LVIDs: 3.3 cm Ao root diam: 2.6 cm FS: 25.0 % asc Aorta Diam: 2.9 cm EPSS: 0.55 cm Ao Arch Diam (Prox Trans): 2.8 cm IVSd: 0.77 cm LVPWd: 0.85 cm LV wells. diameter/BSA (cm/m^2): 2.4 LV sys. diameter/BSA (cm/m^2): 1.8 LA A2 area: 13.7 cm2 RA long axis: 4.2 cm LA A4 area: 11.1 cm2 RA area: 10.6 cm2 LA length (vol): 4.2 cm RA vol: 22.8 ml LA vol: 30.7 ml RA : 12.5 ml/m2 LA vol index: 16.9 ml/m2 IVC diam: 1.1 cm RVD1 (basal): 2.8 cm RVD2 (mid): 2.4 cm TAPSE: 1.9 cm Doppler Measurements & Calculations Ao V2 max: 116.8 cm/sec LVOT Max Brenton: 80.2 cm/sec Ao V2 mean: 89.9 cm/sec LV V1 max P.6 mmHg Ao max P.5 mmHg LV V1 VTI: 17.5 cm Ao mean P.5 mmHg TIFFANIE(I,D): 2.1 cm2 Ao V2 VTI: 26.7 cm TIFFANIE(V,D): 2.2 cm2 sev ratio: 0.66 TIFFANIE indexed to BSA (cm^2/m^2): 1.1 MV E max brenton: 52.3 cm/sec TR max brenton: 223.2 cm/sec MV A max brenton: 76.1 cm/sec TR max P.9 mmHg MV E/A: 0.69 PA V2 max: 69.6 cm/sec Med Peak E' Brenton: 5.3 cm/sec PA V2 mean: 50.8 cm/sec E/E' med: 9.8 PA mean P.1 mmHg Lat Peak E' Brenton: 7.6 cm/sec PA pr(Accel): 34.5 mmHg E/E' lat: 6.9 E/e' average: 8.4 MV dec time: 0.29 sec SV(LVOT): 55.8 ml Reading Physician:
--- NOTE | 2024-05-15 | DI.MRI.S_ITS ---
PROCEDURE: MR HEAD/BRAIN WO CON INDICATIONS: tia TECHNIQUE: Noncontrast axial T1 spin echo, axial T2 fast spin echo, sagittal and axial FLAIR, coronal T2 fast spin echo, axial gradient echo, axial diffusion and ADC through the brain. COMPARISON: [facility], CT, CT HEAD/BRAIN WO CON, 05/14/2024, 22:50. [facility], CT, CT ANGIO HEAD AND NECK, 05/14/2024, 22:50. FINDINGS: Image quality: Excellent. CSF Spaces: Basal cisterns are patent. No extra-axial fluid collections. Ventricles are normal in size and shape. Brain: No intracranial masses or hemorrhage. Villela/white matter interface is normal. Brainstem appears normal. Diffusion-weighted images demonstrate no acute infarct. No chronic ischemic insults. Normal intravascular flow voids are present. Empty sella is incidentally noted consistent with congenital variation. Skull and face: Calvarium has normal marrow signal. Orbits appear normal. Sinuses: Sinuses demonstrate minimal scattered mucosal thickening. IMPRESSION: 1. No acute intracranial process. Dictated by: Tootie Brown M.D. on 05/15/2024 at 10:46 Approved by: Tootie Brown M.D. on 05/15/2024 at 10:47
[2024-05-15 00:09] LABS: TSH w/ Reflex to FT4 0.14 uIU/mL (0.47-4.68)
[2024-05-15] MEDS: ASPIRIN 81 MG CHEW TAB 324 MG PO (01:24)
[2024-05-15] MEDS: LACTATED RINGERS 1,000 ML 100 ML IV (01:39)
--- NOTE | 2024-05-15 04:23 | PC.NURSE ---
0300 Pt. admitted from ER. A&Ox4, denies any chest pain & other discomfort. Oriented to her room, call light, bed & TV controls. Reported had a fall last month bed alarm & fall precautions implemented. Declined to place her purse & belonging in the safe. Will continue plan of care & monitor.
--- NOTE | 2024-05-15 04:40 | P.HP_ITS ---
History of Present Illness History of Present Illness Chief complaint: left leg dragging, no strength Narrative: 63-year-old female with past medical history of atrial fibrillation/A flutter on diltiazem, hypothyroidism and dyslipidemia presents with left leg weakness and decrease sensation. Per the patient's report, about 5 hours ago, the patient was at [facility] and was walking. The patient started to notice increasing weakness and decreased sensation in her left foot. The patient's states that she had a hard time really dorsiflexing her left foot. The patient states that she's had this a month ago but this seems to be significantly worse. The patient did not seek for the evaluation when she first had this last month. The patient otherwise denies any focal weakness, slurred speech, facial drooping, headache, nausea, vomiting, diarrhea, chest pain or shortness of breath. The patient states that her symptoms now did improve a little bit but she still have some mild weakness in her left foot.? In our emergency room, the patient with hemodynamically stable and labs were relatively benign. NIH score per our ER physician was 1. CT/CTA of the head and neck shows no acute finding. On exam per our ER physician, patient has only very faint weakness with dorsiflexion of her left foot otherwise exam was reported to be non-focal. Patient was given a full dose aspirin. Of note patient though has a history of AFib a flutter but was not on any anti-platelet or anticoagulation . [facility] Medical History Neck pain SVT (supraventricular tachycardia) Hyperthyroidism Reactive airway disease Social History household members: none Smoking Status: Never smoker alcohol intake: never Meds Home Medications and Allergies Home Medications Medication Instructions Recorded Confirmed Type albuterol sulfate 2 puff inhalation PRN PRN Asthma 05/03/19 05/15/24 History levothyroxine [Synthroid] 88 mcg PO DAILY 05/03/19 05/15/24 History diltiazem HCl 120 mg 240 mg PO DAILY 05/15/24 05/15/24 History capsule,extended release 24 hr, controlled (DILT-XR) rosuvastatin 10 mg tablet 10 mg PO ONCE PM 05/15/24 05/15/24 History tirzepatide (weight loss) 7.5 7.5 mg SUBCUT WEEKLY 05/15/24 05/15/24 History mg/0.5 mL subcutaneous pen injector tolterodine 4 mg capsule,extended 4 mg PO DAILY 05/15/24 05/15/24 History release 24 hr Allergies Allergy/AdvReac Type Severity Reaction Status Date / Time No Known Drug Allergies Allergy Unverified 03/25/22 13:49 Review of Systems Review of Systems ROS: Yes All systems reviewed with the patient and are negative except as otherwise documented Exam Vital Signs (past 8 hours): - 05/14/24 22:01 05/14/24 23:02 05/14/24 23:02 Temperature 97.6 F Pulse Rate 90 90 Respiratory Rate 18 Blood Pressure 135/68 136/76 Pulse Oximetry 98 96 Oxygen Delivery Method Room Air Room Air Oxygen Flow Rate 05/14/24 23:30 05/14/24 23:30 05/15/24 00:00 Temperature Pulse Rate 90 81 Respiratory Rate 22 17 Blood Pressure 119/79 Pulse Oximetry 93 93 Oxygen Delivery Method Room Air Oxygen Flow Rate 05/15/24 00:00 05/15/24 00:30 05/15/24 00:30 Temperature Pulse Rate 85 Respiratory Rate 19 Blood Pressure 124/68 132/78 Pulse Oximetry 92 Oxygen Delivery Method Oxygen Flow Rate 05/15/24 01:00 05/15/24 01:00 05/15/24 01:30 Temperature Pulse Rate 88 94 H Respiratory Rate 18 19 Blood Pressure 124/79 Pulse Oximetry 92 97 Oxygen Delivery Method Room Air Oxygen Flow Rate 05/15/24 01:31 05/15/24 01:31 05/15/24 02:00 Temperature Pulse Rate 92 H 84 Respiratory Rate 26 H 17 Blood Pressure 150/87 H Pulse Oximetry 97 94 Oxygen Delivery Method Oxygen Flow Rate 05/15/24 02:00 05/15/24 02:30 05/15/24 02:30 Temperature Pulse Rate 84 Respiratory Rate 19 Blood Pressure 131/75 123/83 Pulse Oximetry 94 Oxygen Delivery Method Oxygen Flow Rate 05/15/24 03:02 05/15/24 04:00 Temperature 97.8 F 97.3 F L Pulse Rate 76 Respiratory Rate 16 Blood Pressure 132/90 Pulse Oximetry 94 Oxygen Delivery Method Oxygen Flow Rate 0 Oxygen Delivery Method Room Air Oxygen Flow Rate 0 Narrative Exam Narrative: GENERAL: The patient is not in any acute distressed. Awake and alert. HEENT: Nonicteric sclerae, PERRLA, EOMI. Oropharynx clear. Moist mucous membranes. Conjunctivae appear well perfused. HEART: Regular rate and rhythm without murmurs. No lower extremities edema. LUNGS: Clear to auscultation bilaterally. No wheezing, crackles or rhonchi ABDOMEN: Soft, positive bowel sounds, nontender. SKIN: No rash, no excessive bruising, petechiae, or purpura. NEUROLOGIC: AxO x 3. mild 4/5 weakness with left foot dorsiflexion otherwise non focalCranial nerves II-XII intact without motor/sensory deficit. Objective Labs 05/14/24 22:43 05/14/24 22:43 Labs: Laboratory Results - last 24 hr 05/14/24 22:43 WBC 7.6 RBC 4.38 Hgb 13.3 Hct 39.0 MCV 89.1 MCH 30.3 MCHC 34.0 RDW 12.8 Plt Count 209 Neut % (Auto) 55.5 Lymph % (Auto) 36.1 [place] % (Auto) 5.8 Eos % (Auto) 2.2 Baso % (Auto) 0.4 Neut # (Auto) 4200 Lymph # (Auto) 2800 [place] # (Auto) 400 Eos # (Auto) 200 Baso # (Auto) 0 PT 11.6 INR 1.0 APTT 30 Sodium 140 Potassium 3.6 Chloride 108 H Carbon Dioxide 24 BUN 19 H Creatinine 0.92 Estimated GFR > 60 BUN/Creatinine Ratio 20.7 Glucose 152 H Calcium 9.2 Total Bilirubin 0.5 AST 30 ALT 31 Alkaline Phosphatase 55 Total Protein 6.7 Albumin 4.0 Globulin 2.7 Albumin/Globulin Ratio 1.5 TSH 0.14 L Free T4 1.50 Assessment & Plan Assessment & Plan narrative: Possible TIA with left foot dorsiflex weakness. Admit the patient to medical telemetry under observation. Of note CT and CT angio of the head and neck shows no acute finding of stroke. Will continue to monitor patient neuro status closely. PTOT. Continue aspirin full dose. Obtain echocardiogram with bubble study and MRI of the brain in the morning . History of atrial fibrillation.? Of note patient denies any prior history of stroke and does not report history of hypertension. If this MRI in the morning does show signs of stroke consider starting the patient on anticoagulation. Full dose of aspirin for now. Resume home Diltiazem. Hypothyroidism. Of note TSH slight low but t4 normal. Resume home synthroid . Dislipidemia. Will check lipid panel. Resume home statin DVT prophylaxis lovenox? Code status full code . Disposition likely home in 1 to 2 days . Time-Based Coding :: [TOTAL MINUTES] spent with patient and on the chart (including review of chart, obtaining history, exam, reviewing outside data, placing orders, documenting exam and treatment plan, and counseling patient) on [DATE]. Quality VTE Deep Vein Thrombosis/Pulmonary Embolism Present on Admission: No
[2024-05-15 06:02] LABS: Add Manual Diff / Slide Review NO; Basophils Absolute Auto 0 /uL (0-100); Basophils Percent Auto 0.7 % (0-2); Eosinophils Absolute Auto 200 /uL (0-450); Eosinophils Percent Auto 2.5 % (2-4); Hematocrit 38.2 % (36-46); Lymphocytes Absolute Auto 2600 /uL (1100-4500); Lymphocytes Percent Auto 42.2 % (25-40); Mean Corpuscular Hemoglobin 30.4 PG (26-34); Mean Corpuscular Volume 89.5 fL (80-100); Monocytes Absolute Auto 500 /uL (0-900); Monocytes Percent Auto 7.5 % (3-14); Neutrophils Absolute Auto 2900 /uL (1500-7000); Neutrophils Percent Auto 47.1 % (50-75); Platelet Count 203 X10^3/uL (150-400); Red Blood Cell Count 4.27 X10^6/uL (4.0-5.2); Red Cell Distribution Width 12.4 % (11.6-14.8); White Blood Cell Count 6.1 X10^3/uL (4.5-11.0)
[2024-05-15 06:31] LABS: BUN Creatinine Ratio 19.4 (6-22); Blood Urea Nitrogen 14 mg/dL (7-17); Calcium 9.2 mg/dL (8.4-10.2); Carbon Dioxide 26 mmol/L (22-32); Chloride 106 mmol/L (98-107); Estimated Glomerular Filt Rate > 60 mL/min (>60); Glucose 84 mg/dL (80-110); HEMOLYSIS < 15 (0-50); Potassium 3.5 mmol/L (3.4-5.1); Sodium 137 mmol/L (137-145)
[2024-05-15] MEDS: LEVOTHYROXINE 88 MCG TABLET PO (06:33)
[2024-05-15 07:03] LABS: Hemoglobin A1C% w Est Avg Glu 4.8 % (4.0-6.0)
[2024-05-15 07:05] LABS: Cholesterol 97 mg/dL (140-199); HDL Cholesterol 31 mg/dL (40-60); LDL Cholesterol Calculated 54 mg/dL (<100); Triglycerides 58 mg/dL (35-150)
--- NOTE | 2024-05-15 08:16 | PT.IIE ---
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 Recent fall in mid April and rolled right ankle and it is edematous Activities of Daily Living and IADL's I Prior Functional Level (Other details) I Social History Household Members none Living Arrangements House Number of Floors (Floors) One Floor Number of Stairs To Enter/Railing? 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 Additional Social History Comment Recently had knee scooter after right ankle injury M2 PT-IP Current Condition Start: 05/15/24 07:19 Freq: NEEDED Status: Active Protocol: Document 05/15/24 07:30 MB (Rec: 05/15/24 08:15 MB [id number]) Physical Therapy Current Condition Current Condition Evaluation Date 05/15/24 Treatment Diagnosis Fall in April and left distal LE weakness M3 PT-IP Subjective Start: 05/15/24 07:19 Freq: NEEDED Status: Active Protocol: Document 05/15/24 07:30 MB (Rec: 05/15/24 08:15 MB [id number]) Subjective Physical Therapy Visit Type Type Initial Evaluation Visit Start Time 07:30 Visit Stop Time 07:59 Number of TOE 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 She can walk I and had a knee scooter after recent right ankle injury and boot. Therapy Pain Assessment Pain When Pain Assessed At Rest Pain Present Pain Present Denied Pain M4 PT-IP Mobility and Gait Start: 05/15/24 07:19 Freq: NEEDED Status: Active Protocol: Document 05/15/24 07:30 MB (Rec: 05/15/24 08:15 MB [id number]) PT-Bed Mobility Assessment Rolling Level of Assist Independent Supine to Sit Supine to Sit Independent Sit to Supine Sit to Supine Independent Scooting Scooting to Edge of Bed Independent Scooting Up and Down in Bed Independent PT-Transfer Assessment Sit to and From Stand Sit to and from Stand Standby Assistance Equipment Transfer Assistive Device Gait Belt Orthotic/Prosthetic Devices or Brace: No Transfers Transfer Destination Chair Transfer Technique Ambulation Transfer Ability Level of Assist Standby Assistance Comments Mobility Comments See gait comments Gait Assessment Gait Gait Assistance Required: Standby Assistance Distance (Feet) 150 Able to Maintain Weight Bearing Status Yes During Gait Assistive Devices Assistive Device Gait Belt Orthotic/Prosthetic Devices or Brace: No Gait Deviations General Gait Pattern Decreased Stride Length,Narrow Based Gait Factors Limiting Gait Function Factors Limiting Gait Function Abnormal Tonal Influences, Decreased Sensation,Decreased Strength,Limited Range of Motion Comments Gait Comments Pt presents with I gait with left foot drop with gait and increased knee flexion and hip hike on the left with gait, narrow JIGNA with internal rotation of left leg and foot with gait Stair Climbing Assessment Evaluation Level of Assist On Stairs Contact Guard Assistance Devices Stair Climbing Assistive Devices Left Railing,Right Railing Technique/Endurance Stair Climbing Direction Ascend and Descend Stair Climbing Technique Step Over Step Number of Steps Climbed 3 Query Text: Stair Climbing Set # Repetitions (reps) 1 PT-Balance Assessment Sitting Balance and Reactions Static Sitting Balance Ability Normal Dynamic Sitting Balance Ability Normal Standing Balance and Reactions Static Standing Balance Ability Good Dynamic Standing Balance Ability Good M5 PT-IP Objective Assessments Start: 05/15/24 07:19 Freq: NEEDED Status: Active Protocol: Document 05/15/24 07:30 MB (Rec: 05/15/24 08:15 MB [id number]) Orientation Orientation/Cognition Level of Alertness Alert Orientation Name,Age,Birthday,Year,Place, Situation Language Function Ability No Deficits Noted Safety Awareness Understands Safety Issues Memory Description No Deficits Noted Gross Range of Motion Upper Extremity ROM Impairments Defer to OT Lower Extremity ROM Assessment Left Impaired Impairments Decreased left ankle DF Strength Lower Extremity Strength Assessment Left Impaired Hip B hip flexion 5/5 Knee Left knee flexion 4+/5; knee extension 4+/5 Ankle Left DF 3+/5; eversion 3/5 Coordination Assessment Gross Coordination Gross Coordination Impaired Assessment Foot Tapping Test Minimal Impairment Heel on Winter Test Minimal Impairment Coordination Comments LLE mildly impaired Sensation Assessment Sensation Gross Sensation Left LE Impaired Sensation Description Numbness M6 PT-IP Treatment Start: 05/15/24 07:19 Freq: NEEDED Status: Active Protocol: Document 05/15/24 07:30 MB (Rec: 05/15/24 08:15 MB [id number]) Physical Therapy Treatment Education Education Provided Safety M7 PT-IP Assessment and Plan Start: 05/15/24 07:19 Freq: NEEDED Status: Active Protocol: Document 05/15/24 07:30 MB (Rec: 05/15/24 08:15 MB [id number]) PT Summary Assessment and Plan Potential Rehabilitation Potential Excellent Status of Condition at Evaluation Evolving Summary Impairments ROM,Strength,Balance, Coordination,Sensation, Transfers,Gait Assessment Summary Pt is a 63 y/o female presenting with subacute distal LLE weakness that she thinks started mid April. She had an unexplained fall at work where she rolled her right ankle and she thinks this could possibly be from weakness in LLE. She is awaiting further ortho work-up for right ankle and was in a walking boot and used a knee scooter. Her right ankle is minimally edematous and is pretty strong with DF and eversion MMT today. Left ankle range is limited in eversion and DF and is weak as well. She has mild left knee weakness and c/o numbness distal LLE. Left hip is strong with hip flexion and not impaired. Her LLE is mildly dysmetric with coordination testing and she presents with functional foot drop with gait . OT to assess LUE. MRI brain ordered. If clear, may consider lumbar work-up and spoke with physician given current what appears to be isolated distal LLE deficits. Her mother and daughter have histories of gynocological [place] . Pt has history of old TBI and reports of right cranial injury. Recommend OPPT to work on balance and strengthening. Goals Transfer Goal Independent Gait Goal Independent Gait Distance 200 Other Goals Pt will ascend and descend 3 steps without rail with I to allow safe home entry. Pt will perform WNLs on a standardized balance test to decrease fall risk. Days to Meet Goals 2 Frequency of Treatment Frequency Of Treatment Once a Day Treatment Plan Physical Therapy Treatment Plan Transfer Training,Gait Training,Therapeutic Exercise, Balance Retraining,Discharge Planning,Neuromuscular Re-ed, Coordination Retraining Precautions Other Precautions Falls Recommendations To Nursing Amount of Assist Needed Standby Assistance Discharge Recommendations PT Discharge Recommendations Outpatient PT Transportation Needs at Discharge Private Vehicle
--- NOTE | 2024-05-15 08:39 | PM.HP.1 ---
History of Present Illness History of Present Illness Date Patient Seen: 05/15/24 Chief complaint: left leg dragging, no strength Narrative: From night doctor: 63-year-old female with past medical history of atrial fibrillation/A flutter on diltiazem, hypothyroidism and dyslipidemia presents with left leg weakness and decrease sensation. Per the patient's report, about 5 hours ago, the patient was at [facility] and was walking. The patient started to notice increasing weakness and decreased sensation in her left foot. The patient's states that she had a hard time really dorsiflexing her left foot. The patient states that she's had this a month ago but this seems to be significantly worse. The patient did not seek for the evaluation when she first had this last month. The patient otherwise denies any focal weakness, slurred speech, facial drooping, headache, nausea, vomiting, diarrhea, chest pain or shortness of breath. The patient states that her symptoms now did improve a little bit but she still have some mild weakness in her left foot.? In our emergency room, the patient with hemodynamically stable and labs were relatively benign. NIH score per our ER physician was 1. CT/CTA of the head and neck shows no acute finding. On exam per our ER physician, patient has only very faint weakness with dorsiflexion of her left foot otherwise exam was reported to be non-focal. Patient was given a full dose aspirin. Of note patient though has a history of AFib a flutter but was not on any anti-platelet or anticoagulation . Additional information: The patient was a somewhat vague historian but has had intermittent leg weakness for the past several days. This appears to come and go. There is some noting of a degree of footdrop. She was also had some numbness of her leg. The numbness is from the mid thigh down. She has had no cyanosis of the leg and her other leg is unaffected. She denies any lower back pain, or radicular symptoms. She denies any symptoms of the arms or legs. No difficulty with the vision, or headache. [facility] Medical History Neck pain SVT (supraventricular tachycardia) Hyperthyroidism Reactive airway disease Social History household members: none Smoking Status: Never smoker alcohol intake: never Meds Home Medications and Allergies Home Medications Medication Instructions Recorded Confirmed Type albuterol sulfate 2 puff inhalation PRN PRN Asthma 05/03/19 05/15/24 History levothyroxine [Synthroid] 88 mcg PO DAILY 05/03/19 05/15/24 History diltiazem HCl 120 mg 240 mg PO DAILY 05/15/24 05/15/24 History capsule,extended release 24 hr, controlled (DILT-XR) rosuvastatin 10 mg tablet 10 mg PO ONCE PM 05/15/24 05/15/24 History tirzepatide (weight loss) 7.5 7.5 mg SUBCUT WEEKLY 05/15/24 05/15/24 History mg/0.5 mL subcutaneous pen injector tolterodine 4 mg capsule,extended 4 mg PO DAILY 05/15/24 05/15/24 History release 24 hr Allergies Allergy/AdvReac Type Severity Reaction Status Date / Time No Known Drug Allergies Allergy Unverified 03/25/22 13:49 Review of Systems Review of Systems Narrative: All else reviewed and otherwise unremarkable except as noted in the history and physical. Exam Vital Signs (past 8 hours): - 05/15/24 01:00 05/15/24 01:00 05/15/24 01:30 Temperature Pulse Rate 88 94 H Respiratory Rate 18 19 Blood Pressure 124/79 Pulse Oximetry 92 97 Oxygen Delivery Method Room Air Oxygen Flow Rate 05/15/24 01:31 05/15/24 01:31 05/15/24 02:00 Temperature Pulse Rate 92 H 84 Respiratory Rate 26 H 17 Blood Pressure 150/87 H Pulse Oximetry 97 94 Oxygen Delivery Method Oxygen Flow Rate 05/15/24 02:00 05/15/24 02:30 05/15/24 02:30 Temperature Pulse Rate 84 Respiratory Rate 19 Blood Pressure 131/75 123/83 Pulse Oximetry 94 Oxygen Delivery Method Oxygen Flow Rate 05/15/24 03:02 05/15/24 04:00 Temperature 97.8 F 97.3 F L Pulse Rate 76 Respiratory Rate 16 Blood Pressure 132/90 Pulse Oximetry 94 Oxygen Delivery Method Oxygen Flow Rate 0 Oxygen Delivery Method Room Air Oxygen Flow Rate 0 Narrative Exam Narrative: NAD, alert and oriented, fluent speech, calm. Normocephalic skull, EOMI, anicteric sclera, symmetric pupils. Oropharynx unremarkable, no droop. Neck supple, midline trachea, no adenopathy. Lungs clear, normal rate and effort. Heart regular, no murmur gallop or rub. Abdomen is soft, non distended and non tender. Extremities are free of edema. Skin is free of rash or lesions. Joints are not swollen or deformed. Judgment appears to be normal. Neuro: Cranial nerves are intact. Normal speech and judgment. Motor strength is 5/5 all extremities except the left leg. She does have weak in asymmetric dorsiflexion of the left foot and otherwise normal strength of the leg at the hip, knee and with plantar flexion. Objective ECG Impression: Normal sinus rhythm Cannot rule out Anterior infarct , age undetermined Imaging Multiple studies:: Radiologist's impression: Echo: 1. The left ventricular contractility is normal. Estimate ejection fraction is greater than 55% with no segmental wall motion abnormalities. No left ventricular hypertrophy. Grade 1 diastolic dysfunction. 2. The right ventricular contractility is normal. 3. All cardiac chambers are of normal size. 4. No significant valvular abnormalities. 5. No intracardiac shunts noted on agitated saline contrast study. 6. No obvious intracardiac masses nor thrombi. 7. No hemodynamically significant pericardial effusion. 8. Low right-sided filling pressures. Head and neck CTA: No significant intracranial arterial abnormality is seen. No significant abnormality is seen within the arteries of the neck. Head CT: No acute intracranial pathology. Labs 05/15/24 04:55 05/15/24 04:55 Labs: Laboratory Results - last 24 hr 05/14/24 05/15/24 22:43 04:55 WBC 7.6 6.1 RBC 4.38 4.27 Hgb 13.3 13.0 Hct 39.0 38.2 MCV 89.1 89.5 MCH 30.3 30.4 MCHC 34.0 34.0 RDW 12.8 12.4 Plt Count 209 203 Neut % (Auto) 55.5 47.1 L Lymph % (Auto) 36.1 42.2 H [place] % (Auto) 5.8 7.5 Eos % (Auto) 2.2 2.5 Baso % (Auto) 0.4 0.7 Neut # (Auto) 4200 2900 Lymph # (Auto) 2800 2600 [place] # (Auto) 400 500 Eos # (Auto) 200 200 Baso # (Auto) 0 0 PT 11.6 INR 1.0 APTT 30 Sodium 140 137 Potassium 3.6 3.5 Chloride 108 H 106 Carbon Dioxide 24 26 BUN 19 H 14 Creatinine 0.92 0.72 Estimated GFR > 60 > 60 BUN/Creatinine Ratio 20.7 19.4 Glucose 152 H 84 Hemoglobin A1c 4.8 Calcium 9.2 9.2 Total Bilirubin 0.5 AST 30 ALT 31 Alkaline Phosphatase 55 Total Protein 6.7 Albumin 4.0 Globulin 2.7 Albumin/Globulin Ratio 1.5 Triglycerides 58 Cholesterol 97 L LDL Cholesterol, Calc 54 HDL Cholesterol 31 L TSH 0.14 L Free T4 1.50 Assessment & Plan Assessment & Plan narrative: 1. Possible TIA with left foot dorsiflex weakness. Admit the patient to medical telemetry under observation. Of note CT and CT angio of the head and neck shows no acute finding of stroke. Will continue to monitor patient neuro status closely. PTOT. Continue aspirin full dose. Obtain echocardiogram with bubble study and MRI of the brain in the morning . 2. History of atrial fibrillation.? Of note patient denies any prior history of stroke and does not report history of hypertension. If this MRI in the morning does show signs of stroke consider starting the patient on anticoagulation. Full dose of aspirin for now. Resume home Diltiazem. 3. Hypothyroidism. Of note TSH slight low but t4 normal. Resume home synthroid . 4. Dislipidemia. Will check lipid panel. Resume home statin PLAN: -MRI brain to rule out stroke -PT and OT evaluations DVT prophylaxis lovenox? Code status full code . Observation status, anticipate a 1 midnight stay. BANDAR is May 16. Time-Based Coding :: 35 min spent with patient and on the chart (including review of chart, obtaining history, exam, reviewing outside data, placing orders, documenting exam and treatment plan, and counseling patient) on 05/15. Quality VTE Deep Vein Thrombosis/Pulmonary Embolism Present on Admission: No MIPS - Admit I confirm the patient?s Advance Care Plan is present, Code status is documented, Surrogate decision maker is in patient?s record [If Yes, STOP here]: Yes MIPS - Meds 'Current medications' to include all prescriptions, [id number] products, herbals, cannabis/cannabidiol products, and vitamin/mineral/dietary (nutritional) supplements. I have utilized all available resources to obtain, update, or review the patient?s current medications. [If Yes, STOP here]: Yes
--- NOTE | 2024-05-15 09:17 | OT.IP.EVAL ---
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 Recent fall in mid April and rolled right ankle and it is edematous Activities of Daily Living and IADL's I Prior Functional Level (Other details) I Social History Household Members none Living Arrangements House Number of Floors (Floors) One Floor Number of Stairs To Enter/Railing? 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 Additional Social History Comment Recently had knee scooter after right ankle injury M2 OT-IP Current Condition Start: 05/15/24 09:26 Freq: Status: Active Protocol: Document 05/15/24 09:26 [facility] (Rec: 05/15/24 09:44 [facility] [id number]) Occupational Therapy Current Condition Current Condition Evaluation Date 05/15/24 Treatment Diagnosis LLE weakness, possible TIA vs CVA Diagnosis Onset Date 05/15/24 M3 OT- IP Subjective and Pain Start: 05/15/24 09:26 Freq: Status: Active Protocol: Document 05/15/24 09:26 [facility] (Rec: 05/15/24 09:44 [facility] [id number]) OT- Subjective Occupational Therapy Visit Type Type Initial Evaluation Visit Start Time 08:35 Visit Stop Time 09:17 Occupational Therapy Visit Comments Patient Comments Pt agreed tp get up for OT eval. Patient/Caregiver Goals TO go home. OT Pain Assessment Pain When Pain Assessed At Rest Pain Present Pain Present Denied Pain M4 OT- IP ADL's Start: 05/15/24 09:26 Freq: Status: Active Protocol: Document 05/15/24 09:26 [facility] (Rec: 05/15/24 09:44 [facility] [id number]) OT RJY-Rjub-Iecuzxm General Evaluation Self-Feeding Ability Independent OT ADL-Grooming Comments OT Grooming Comments Not performed. OT ADL-Oral Care Comments Oral Care Comments Not performed. OT ADL-Dressing General Eval Lower Body Dressing Ability Independent OT ADL-Toileting Comments OT Toileting Comments NO issues noted. OT ADL-Bathing Comments OT Bathing Comments Pt may benefit from a shower chair as needed. M5 OT- IP IADL's Start: 05/15/24: Freq: Status: Active Protocol: Document 05/15/24: [facility] (Rec: 05/15/24 09:44 [facility] [id number]) OT-Instrumental Activities of Daily Living Home Safety Awareness Awareness of Need for Assistance at Home Good Awareness Ability to Problem Solve Emergency Able to Problem Solve Situations Home Safety Comments Pt states now will be more mindful of letting her kids assist for IADL needs- especaily the yard work and not get on ladders . Medication Management Medication Management Comments Cued to double check before taking. Money Management Money Management Comments Pt to be more careful and double check her work. Meal Preparation Meal Preparation Comments Pt states to be mindful and be careful. Budget And Policy Analyst Budget And Policy Analyst Comments Pt will benefit from assist. Driving Driving Comments Suggested pt to hold off on driving at this time as her mind is distracted and making some mistakes. M6 OT- IP Functional Cognition Start: 05/15/24: Freq: Status: Active Protocol: Document 05/15/24: [facility] (Rec: 05/15/24 09:44 [facility] [id number]) Cognitive Factors Limiting Selfcare Function Cognitive Ability Level of Alertness Alert Patient Orientation Name,Age,Birthday,Date,Year, Day of Week,Place,Situation Attention Span Ability Capable of Focused Attention, Capable of Sustained Attention Ability to Follow Commands Able to Follow One Step Commands Memory Description Short Term Impaired Problem Solving Ability No deficits Noted Executive Function Ability Unable to Filter Distractions, Unable to Remember Details Cognitive Tests SLUMS Pt scored 26/30 which implies normal for cognition and mainly has trouble with her STM. Pt states had a TBI 10 years ago and at the time her main symptom was decreased STM . Pt states has noted has been making more mistakes at work with manager [employer] in the past few weeks. Cognitive Comments Cognitive Assessment Comments Pt scored 81 seconds with MIN cues and implies mild deficits for visual attention, speed of processing, executive functioning, mental flexibility, and task switching. Pt educated to stop and think first before moving at times to scan her environment for safety. Pt trying to lie down with the IV in the way and TV cord in the way. OT- Vision and Hearing OT- Hearing Assessment OT- Hearing Assessment WFL OT- Vision Assessment Visual Attentiveness WFL Occular Pursuits WFL Visual Convergence WFL Visual Penny WFL Diplopia Absent M7 OT- IP Mobility and Balance Start: 05/15/24 09:26 Freq: Status: Active Protocol: Document 05/15/24: [facility] (Rec: 05/15/24 09:44 [facility] [id number]) OT- Bed Mobility Assessment Supine to Sit Supine to Sit Assist Independent Sit to Supine Sit to Supine Assist Independent OT-Transfer Assessment Sit to and From Stand Sit to and from Stand Independent Transfers Transfer Ability Independent Technique Transfer Destination Bed,Chair Transfer Technique Stand Step Pivot Devices Transfer Assistive Devices None Comments Mobility Comments Pt is independent in the room. OT- Balance Assessment Sitting Balance and Reactions Static Sitting Balance Ability Normal Dynamic Sitting Balance Ability Normal Standing Balance and Reactions Static Standing Balance Ability Normal Dynamic Standing Balance Ability Good M8 OT- IP Objective Assessments Start: 05/15/24: Freq: Status: Active Protocol: Document 05/15/24: [facility] (Rec: 05/15/24 09:44 [facility] [id number]) OT Gross Range of Motion Upper Extremity Range of Motion Assessment Within Functional Limits OT Strength Upper Extremity Strength Assessment Within Functional Limits OT- Coordination Assessment Upper Extremity Finger to Nose Test Within Functional Limits Finger Tapping Test Within Functional Limits Comments Coordination Comments 9 hole peg test 19sec for right hand, 21 sec for left hand both scored better than 75% for her age. OT Sensation Assessment Comments Summary Comments Slight increased time for proprioception for left hand. Edema Edema Absent M9 OT- IP Assessment and Plan Start: 05/15/24:26 Freq: Status: Active Protocol: Document 05/15/24: [facility] (Rec: 05/15/24 09:44 [facility] [id number]) OT Summary Assessment and Plan Potential Rehabilitation Potential Excellent Analytic Complexity at Evaluation Low Summary OT Impairments Balance,Functional Cognition, Functional Mobility,Bathing Progress Towards Goals Progressing Toward Goals Assessment Summary Pt LOW complexity and main barriers are decreased LLE , short term memory , and having major stressor in her life at this time, her daughter has cancer. Pt aware to slow down and be more mindful of her surroundings, and states now will let her kids assist especially for yard work at home. Pt to go home with assist. Pt will benefit from outpt PT. Goals Bathing Goal Independent Days to Meet Goals 1 Frequency of Treatment Frequency Of Treatment Once a Day Treatment Plan OT Treatment Plan ADL Training,Functional Cognition Training,Functional Mobility,Patient/Family Education,Discharge Planning Other Treatment Recommendations and Next Pt to incorporate memory Treatment Focus strategies daily. Discharge Recommendations OT Discharge Recommendations Home with Assistance, Outpatient PT Home Equipment Needs Shower chair Transportation Needs at Discharge Private Vehicle
[2024-05-15] MEDS: dilTIAZem CD 120 MG CAP 240 MG PO (09:44)
[2024-05-15] MEDS: ASPIRIN EC 325 MG TABLET PO (09:44)
[2024-05-15] MEDS: ENOXAPARIN 40 MG/0.4 ML SYRINGE SUBCUT (09:46)
--- NOTE | 2024-05-15 11:42 | PC.NURSE ---
Patient has been having some issues with her r.ankle as she fell in April. Her left leg was also feeling numb and this is what she came into the ER for. She states that this has resolved some. Patient is down and back from her MRI.
--- NOTE | 2024-05-15 12:31 | CM.DANOTE ---
DCP Assessment note pt is a 63yo F here after suspected TIA/leg weakness. 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 Per hospitalist in morning rounds, pt may dc today vs tomorrow pending MRI. Per PT/OT, rec home. SOFT WORK WRAPPER EXAMINER briefly met with pt in room. Reports being indep/active at baseline, eager to dc home. Deny any CM needs and reports she has her dtr to help at dc if needed P: anticipate home today vs tomorrow, dtr to support as needed. No CM needs identified at this time. CM team will continue to follow as needed MIGNON Mejias Discharge Planning/Care Management CM Discharge Assessment Start: 05/15/24 12:30 Freq: Status: Active Protocol: Document 05/15/24 12:30 [facility] (Rec: 05/15/24 12:31 [id number]) Discharge Planning Assessment Assigned Fry Cook MIGNON Sunshine DPOA/Assigned Designee Name alfreda Pozo Contact Information [phone] Advance Directives? No History Provided By Patient Prior Living Arrangements House Household Members none Type of transporation used prior to Drives own vehicle admit Willing to Return to Facility? No Independent with ADL's Yes Is patient alert and oriented? Yes Discharge Plan Home Referrals Initiated None needed Whiteboard Updated in Patient Room with No name and ext. # of Fry Cook Review Status In Process Please Provide Date Initial DC 05/15/24 Assessment Was Performed Next Review Type Continued Stay Review
[2024-05-15] MEDS: POTASSIUM CHLORIDE 20 MEQ TAB 40 MEQ PO (12:33)
--- NOTE | 2024-05-15 13:28 | DI.MRI.S_ITS ---
PROCEDURE: MR LUMBAR SPINE WO/W CON INDICATIONS: left leg weakness TECHNIQUE: Noncontrast sagittal T1 spin echo and T2 fast spin echo, sagittal STIR, axial T1 and T2 fast spin echo through the lumbar spine. In cases with scoliosis, additional coronal T2 fast spin echo may be performed. After the administration of contrast, sagittal and axial T1 spin echo with fat saturation through the lumbar spine. COMPARISON: None. FINDINGS: Image quality: Excellent. Alignment and curvature: Mild levoconvex scoliotic curvature is noted. There is minimal retrolisthesis seen at L5-S1. Marrow: Marrow is of normal overall signal. No acute vertebral body compression fractures. No suspicious marrow enhancement. Spinal cord: Conus medullaris terminates at the L1 level. Visualized spinal cord demonstrates normal signal, without suspicious enhancement. Paraspinous soft tissues: No paravertebral masses or abnormal enhancement. T12-L1: Normal appearance. L1-L2: Normal appearance. L2-L3: Normal appearance. L3-L4: No significant abnormality is seen L4-L5: The disc height is well-preserved. Loss of disc signal is seen at this level. Mild to moderate disc bulge is seen. Moderate facet joint hypertrophy is seen. There is mild right-sided and moderate left-sided neural foraminal narrowing. No central canal narrowing is seen. L5-S1: Mild loss of disc height is seen. Loss of disc signal is seen. Moderate generalized disc bulge is seen. Mild bilateral neural foraminal narrowing is seen. No central canal narrowing is seen. IMPRESSION: No katalina acute abnormality is seen. Focal lower lumbar spine degenerative changes are seen No abnormal enhancement is seen. No abnormal enhancement is seen. Dictated by: Placido Dumont M.D. on 05/15/2024 at 13:32 Approved by: Placido Dumont M.D. on 05/15/2024 at 13:34
--- NOTE | 2024-05-15 16:34 | PM.DS.1 ---
History of Present Illness History of Present Illness Chief complaint: left leg dragging, no strength Narrative: From night doctor: 63-year-old female with past medical history of atrial fibrillation/A flutter on diltiazem, hypothyroidism and dyslipidemia presents with left leg weakness and decrease sensation. Per the patient's report, about 5 hours ago, the patient was at [facility] and was walking. The patient started to notice increasing weakness and decreased sensation in her left foot. The patient's states that she had a hard time really dorsiflexing her left foot. The patient states that she's had this a month ago but this seems to be significantly worse. The patient did not seek for the evaluation when she first had this last month. The patient otherwise denies any focal weakness, slurred speech, facial drooping, headache, nausea, vomiting, diarrhea, chest pain or shortness of breath. The patient states that her symptoms now did improve a little bit but she still have some mild weakness in her left foot.? In our emergency room, the patient with hemodynamically stable and labs were relatively benign. NIH score per our ER physician was 1. CT/CTA of the head and neck shows no acute finding. On exam per our ER physician, patient has only very faint weakness with dorsiflexion of her left foot otherwise exam was reported to be non-focal. Patient was given a full dose aspirin. Of note patient though has a history of AFib a flutter but was not on any anti-platelet or anticoagulation . Additional information: The patient was a somewhat vague historian but has had intermittent leg weakness for the past several days. This appears to come and go. There is some noting of a degree of footdrop. She was also had some numbness of her leg. The numbness is from the mid thigh down. She has had no cyanosis of the leg and her other leg is unaffected. She denies any lower back pain, or radicular symptoms. She denies any symptoms of the arms or legs. No difficulty with the vision, or headache. Discharge Providers Provider Date of admission: 05/15/24 01:28 Discharge Date: 05/16/24 Primary care physician: Sruthi Wright PA-C Consults: 05/15/24 01:28 Consult to Occupational Therapy Evaluate & Treat Comment: Physician Instructions: Evaluate and treat Consult to Physical Therapy Evaluate & Treat Comment: Physician Instructions: Evaluate and Treat Discharge provider: Elroy Santos MD Summary Hospital Course Discharge Diagnosis: 1. Acute on chronic left leg weakness with a mild footdrop, negative MRI and lumbar sacral spine MRI. LS MRI reveals degenerative changes and mild disc bulging. 2. History of atrial fibrillation.? Of note patient denies any prior history of stroke and does not report history of hypertension. If this MRI in the morning does show signs of stroke consider starting the patient on anticoagulation. Full dose of aspirin for now. Resume home Diltiazem. 3. Hypothyroidism. Of note TSH slight low but t4 normal. Resume home synthroid . 4. Dislipidemia. Will check lipid panel. Resume home statin Hospital Course: She was admitted for transient leg weakness but has a history of a more chronic mild foot drop. MRI of the brain was negative for stroke in the lumbar sacral spine was also obtained and this MRI was negative for evidence of a disc herniation or other obvious nerve compression. She did well physical therapy and had no motor deficits other than a very mild footdrop on the left. She had normal speech and no other abnormalities. She was advised to follow up with her provider, Sruthi wright within the next week and request a referral to Neurology. She may require nerve conduction studies to further define the abnormality of her leg given her negative imaging results. We will put her on a short course of prednisone to see if this improves her leg weakness in any way. She did deny any radicular symptoms or back pain. LS spine MRI did reveal disc bulges at L4-L5 and L5-S1. Status at Discharge Cognitive/behavioral status at discharge: oriented Functional status at discharge: independent ambulation Overall status at discharge: patient is progressing back to baseline Time Spent with Patient Time spent: Greater than 30 minutes Exam Vital Signs (past 8 hours): - 05/15/24 12:00 Temperature 97.8 F Pulse Rate 77 Respiratory Rate 16 Blood Pressure 123/82 Pulse Oximetry 99 Oxygen Flow Rate 0 Oxygen Delivery Method Room Air Oxygen Flow Rate 0 Narrative Exam Narrative: NAD, alert and oriented. Fluent speech. Lungs are clear, normal rate and effort. Heart is regular, no murmur gallop or rub. Abdomen is soft, non distended. Extremities are free of edema. Normal motor strength of arms and legs except the left leg has a very mild weakness of dorsiflexion. 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 Objective ECG Impression: Normal sinus rhythm Cannot rule out Anterior infarct , age undetermined Imaging Multiple studies:: Radiologist's impression: Brain CT No acute intracranial pathology. Brain MRI 1. No acute intracranial process. CTA of the head and neck No significant intracranial arterial abnormality is seen. No significant abnormality is seen within the arteries of the neck. Echo 1. The left ventricular contractility is normal. Estimate ejection fraction is greater than 55% with no segmental wall motion abnormalities. No left ventricular hypertrophy. Grade 1 diastolic dysfunction. 2. The right ventricular contractility is normal. 3. All cardiac chambers are of normal size. 4. No significant valvular abnormalities. 5. No intracardiac shunts noted on agitated saline contrast study. 6. No obvious intracardiac masses nor thrombi. 7. No hemodynamically significant pericardial effusion. 8. Low right-sided filling pressures. Lumbar spine MRI Spinal cord: Conus medullaris terminates at the L1 level. Visualized spinal cord demonstrates normal signal, without suspicious enhancement. Paraspinous soft tissues: No paravertebral masses or abnormal enhancement. T12-L1: Normal appearance. L1-L2: Normal appearance. L2-L3: Normal appearance. L3-L4: No significant abnormality is seen L4-L5: The disc height is well-preserved. Loss of disc signal is seen at this level. Mild to moderate disc bulge is seen. Moderate facet joint hypertrophy is seen. There is mild right-sided and moderate left-sided neural foraminal narrowing. No central canal narrowing is seen. L5-S1: Mild loss of disc height is seen. Loss of disc signal is seen. Moderate generalized disc bulge is seen. Mild bilateral neural foraminal narrowing is seen. No central canal narrowing is seen. IMPRESSION: No katalina acute abnormality is seen. Focal lower lumbar spine degenerative changes are seen No abnormal enhancement is seen. No abnormal enhancement is seen. Labs 05/15/24 04:55 05/15/24 04:55 Labs: Laboratory Results - last 24 hr 05/14/24 05/15/24 22:43 04:55 WBC 7.6 6.1 RBC 4.38 4.27 Hgb 13.3 13.0 Hct 39.0 38.2 MCV 89.1 89.5 MCH 30.3 30.4 MCHC 34.0 34.0 RDW 12.8 12.4 Plt Count 209 203 Neut % (Auto) 55.5 47.1 L Lymph % (Auto) 36.1 42.2 H [place] % (Auto) 5.8 7.5 Eos % (Auto) 2.2 2.5 Baso % (Auto) 0.4 0.7 Neut # (Auto) 4200 2900 Lymph # (Auto) 2800 2600 [place] # (Auto) 400 500 Eos # (Auto) 200 200 Baso # (Auto) 0 0 PT 11.6 INR 1.0 APTT 30 Sodium 140 137 Potassium 3.6 3.5 Chloride 108 H 106 Carbon Dioxide 24 26 BUN 19 H 14 Creatinine 0.92 0.72 Estimated GFR > 60 > 60 BUN/Creatinine Ratio 20.7 19.4 Glucose 152 H 84 Hemoglobin A1c 4.8 Calcium 9.2 9.2 Total Bilirubin 0.5 AST 30 ALT 31 Alkaline Phosphatase 55 Total Protein 6.7 Albumin 4.0 Globulin 2.7 Albumin/Globulin Ratio 1.5 Triglycerides 58 Cholesterol 97 L LDL Cholesterol, Calc 54 HDL Cholesterol 31 L TSH 0.14 L Free T4 1.50 [facility] Medical History Neck pain SVT (supraventricular tachycardia) Hyperthyroidism Reactive airway disease Social History household members: none Smoking Status: Never smoker alcohol intake: never Discharge Assessment & Plan Assessment and Plan Assessment: 1. Acute on chronic left leg weakness with a mild footdrop, negative MRI and lumbar sacral spine MRI. LS MRI reveals degenerative changes and mild disc bulging. 2. History of atrial fibrillation.? Of note patient denies any prior history of stroke and does not report history of hypertension. If this MRI in the morning does show signs of stroke consider starting the patient on anticoagulation. Full dose of aspirin for now. Resume home Diltiazem. 3. Hypothyroidism. Of note TSH slight low but t4 normal. Resume home synthroid . 4. Dislipidemia. Will check lipid panel. Resume home statin Plan of Treatment: Discharge home with close follow up with her provider, Ashkan wright at [facility]. Recommend neurology referral and consideration of nerve conduction studies. Discharge Plan Discharge Plan Patient Disposition: Home Provider Discharge Comment: Stable for discharge home with close follow up with PCP and neurology referral. Discharge orders & Medications Prescriptions: New prednisone 50 mg tablet 50 mg PO DAILY Qty: 5 0RF Continued levothyroxine 88 mcg PO DAILY albuterol sulfate 2 puff inhalation PRN PRN (Reason: Asthma) tirzepatide (weight loss) 7.5 mg/0.5 mL Pen Injector 7.5 mg SUBCUT WEEKLY diltiazem HCl [DILT-XR] 120 mg capsule,ext.rel 24h degradable 240 mg PO DAILY rosuvastatin 10 mg tablet 10 mg PO ONCE PM tolterodine 4 mg capsule,extended release 24hr 4 mg PO DAILY Follow up/Referrals: Sruthi Wright PA-C [Primary Care Provider] - Discharge Health Status Multidrug resistant organism: No MDRO Diet/Activity/Treatments Diet: Regular Skin/Wound/Dressing Care Report to your healthcare provider any signs of infection, such as:: increased pain Visit Report/Discharge Packet Instructions: Prednisone Stand Alone Forms: Patient Portal/API, Stroke Signs & Symptoms Discharge Data Primary Care Provider: Sruthi Wright Quality VTE Deep Vein Thrombosis/Pulmonary Embolism Present on Admission: No
== END 2024-05-15 18:30 | disposition home or self-care (01) | DRG 566 ==
LOC: ED 05-15 01:28 → AC 05-15 07:44
PROVIDERS: Admitting Provider Internal Medicine; Emergency Provider Emergency Medicine; PCP Physician Assistant; Referring Provider Emergency Medicine; Visit Provider Internal Medicine
DX: M21.372 Foot drop, left foot (principal); E03.9 Hypothyroidism, unspecified; E78.5 Hyperlipidemia, unspecified; M51.369 Other intervertebral disc degeneration, lumbar region without mention of lumbar back pain or lower extremity pain; M51.379 Other intervertebral disc degeneration, lumbosacral region without mention of lumbar back pain or lower extremity pain; Z86.79 Personal history of other diseases of the circulatory system; R29.701 NIHSS score 1
CPT/HCPCS: 36415; 70450; 70496; 70498; 70551; 72158; 80048; 80053; 80061; 83036; 84439; 84443; 85025; 85610; 85730; 93005; 93010; 93306; 96360; 96361; 96372; 97129; 97162; 97165; 99284; 99285; G0378; J1650; Q9967